=== PATIENT | female | born 1985 | race African-American/Black ===

== ENCOUNTER 2024-12-14 10:52 | Outpatient (CLI) | payer OTHER, SELFPAY ==
[2024-12-14 12:11] LABS: Hematocrit 36.5 % (37.0-47.0); Hemoglobin 11.5 g/dL (12.0-15.0); Mean Corpuscular HGB Conc 31.5 g/dl (32-36); Mean Corpuscular Hemoglobin 28.3 pg (26-34); Mean Corpuscular Volume 89.9 fl (80-100); Mean Platelet Volume 8.7 fl (7.4-10.4); Platelet Count Result 317 k/mm3 (150-375); Red Blood Count 4.06 M/mm3 (4.2-5.4); Red Cell Distribution Width 13.9 % (11.5-14.5)
--- OUTSIDE RECORDS SUMMARY | 2024-12-14 12:37 | XMS_ITS | CONTINUITY OF CARE DOCUMENT ---
Author Name pernell gimenez Address Unknown Organization [facility] Address [address] [place] [address] Phone [phone] Care Team Providers Care Wharf Worker Name Role Phone Juan F Nugent MD Unavailable [phone] Juan F Nugent MD Unavailable [phone] INSURANCE PROVIDERS Payer name Policy type / Coverage type [place] red libertarian ID SELF PAY [employer] MEDICAID Medicaid [id number]
--- OUTSIDE RECORDS SUMMARY | 2024-12-14 12:37 | XMS_ITS | Clinical Summary ---
Author Organization [facility] Address [address] [place] [address] Care Team Providers Care Critical Care Cns Name Role Phone [facility] Care Provider Maya Klein MD Unavailable [phone] Source Comments [facility],non-owned Affiliates and Associated Physician Practices is amultiple site organization consisting of ambulatory clinics and hospital sitesin [place], [place], [place] and [place]. This disclosure is being madepursuant to the Care Everywhere program and may not contain all information available regarding this patient. Last updated 18.[facility] Allergies Active Allergy Reactions Criticality Noted Date Comments Oxycodone-Acetaminophen Urticaria 05/28/2012 Medications * Be aware that medications may not be up to date on this document. Alwaysverify current medications with the patient. Medication Sig Dispensed Refills Start Date End Date Status trimethoprim-sulfame thoxazole (BACTRIM DS) 800-160 MG tablet Take 2 Tabs by mouth 2 times daily. 28 Tab 0 05/28/2012 Active hydrocodone-acetamin ophen (VICODIN) 5-500 MG tablet Take 1-2 Tabs by mouth 4 times daily as needed for Pain. 20 Tab 0 05/28/2012 Active methylPREDNISolone (MEDROL DOSEPAK) 4 MG tablet Take by mouth as directed. 21 Packet 0 04/08/2013 Active albuterol HFA (PROVENTIL;VENTOLIN; PROAIR) 108 (90 BASE) MCG/ACT inhaler Inhale 2 Puffs by mouth every 4 hours as needed for Shortness of Breath or Wheezing. 1 Inhaler 1 04/08/2013 Active doxycycline (VIBRAMYCIN) 100 MG capsule Take 1 Cap by mouth 2 times daily. 14 Cap 0 04/08/2013 Active ibuprofen (MOTRIN) 600 MG tablet Take 1 Tab by mouth every 8 hours as needed for Pain. 20 Tab 0 04/08/2013 Active hydrocodone-acetamin ophen (NORCO) 5-325 MG tablet Take 1-2 Tabs by mouth every 6 hours as needed for Pain. 10 Tab 0 04/08/2013 Active azithromycin (ZITHROMAX) 250 MG tablet Take 2 tablets(500 mg) by mouth today, then one tablet(250 mg) by mouth for the next four days 6 Tab 0 12/25/2014 Active ibuprofen (MOTRIN) 800 MG tablet Take 1 Tab by mouth 3 times daily as needed for Pain. 20 Tab 0 12/25/2014 Active Social History Tobacco Use Types Packs/Day Years Used Date Smoking Tobacco: Former Alcohol Use Standard Drinks/Week Comments No 0 (1 standard drink = 0.6 oz pur e alcohol) Sex and Gender Information Value Date Recorded Sex Assigned at Not on file Gender Identity Not on file Sexual Orientation Not on file Last Filed Vital Signs Vital Sign Reading Time Taken Comments Blood Pressure 133/96 12/25/2014 11:44 AM CDT Pulse 66 12/25/2014 11:44 AM CDT Temperature 37.1 C (98.7 F) 12/25/2014 10:22 AM CDT Respiratory Rate 18 12/25/2014 10:22 AM CDT Oxygen Saturation 100% 12/25/2014 11:44 AM CDT Inhaled Oxygen Concentration - - Weight 62.1 kg (137 lb) 12/25/2014 10:22 AM CDT Height 154.9 cm (5' 0.98 ) 12/25/2014 10:22 AM C DT Body Mass Index 25.9 12/25/2014 10:22 AM CDT Plan of Treatment Health Maintenance Due Date Last Done Comments LIPID TESTING 1984 MAMMOGRAM 1984 PAP SMEAR 1984 HIV SCREENING 1999 HEPATITIS C SCREENING 10/27/2002 DTAP/TDAP/TD VACCINES (1 - Tdap) 2003 HEPATITIS B VACCINE (1 of 3 - 19+ 3-dose series) 2003 COVID-19 VACCINE (2023-2 5 season) 2024 DEPRESSION SCREENING 09/14/2024 INFLUENZA VACCINE (Season Ended) 2025 ZOSTER VACCINE (1 of 2) 2034 HIB VACCINE Aged Out No longer eligi ble based on patient's age to complete this topic HPV VACCINE Aged Out No longer eligi ble based on patient's age to complete this topic MENINGOCOCCAL (Group B) VACC INE SHARED DECISION-MAKING Aged Out No longer eligibl e based on patient's age to complete this topic MENINGOCOCCAL GROUPS A/C/Y/W VACCINE Aged Out No longer eligible b ased on patient's age to complete this topic PNEUMOCOCCAL VACCINE Aged Out No long er eligible based on patient's age to complete this topic Care Teams Critical Care Cns Relationship Specialty Start Date End Date [facility], [facility] [address] [place] [address] PCP - General 06/01/18 Maya Klein MD [address] [place] [address] Family Medicine 06/01/18
--- OUTSIDE RECORDS SUMMARY | 2024-12-14 12:37 | XMS_ITS | Data Portability ---
Author Organization [place] [facility] [employer] [facility] Address [address] [place] [address] Assessment Encounter Date Assessment Date Assessment LastModified by Organization Details LastModified Time 11/03/2024 11/03/2024 DD: Viral URI vs influenza A: Influenza suspected. Patient presents within 48 hours of onset of symptoms. Will prescribe Tamiflu 75 mg bid x 5 days. Diagnosis and treatment plan discussed with patient using shared decision making. Patient voices understanding and agrees with treatment plan. P: Tamiflu 75 mg twice daily for 5 days. Take over the counter cold medicines as needed for nasal congestion, cough, fever. Use saline nasal spray 2-3 times daily. Take ibuprofen 600 mg every 6 hours as needed for headache, body aches or fever. Follow up with your doctor in 5 days if not better. Go to the ER immediately if you develop fever higher than 103, severe headache, neck stiffness or any worsening symptoms [email or web address] Not available 11/03/2024 15:22:26 Plan of Treatment Reminders Order Date Submit Date Provider Last Modified By Organization Details Last Modified Time Details Appointments None recorded. Lab None recorded. Referral None recorded. Procedures None recorded. Surgeries None recorded. Imaging None recorded. Medication Orders Tamiflu 75 mg capsule 025 025 [id number], [address] [place], [place], [id number], 15:22:24 Patient TargetsNo targets recorded. Patient InstructionsNo instructions recorded. Reason for Referral None Reported. Medical Equipment None Reported. Allergies No known drug allergies Medications Name Sig Start Date Stop Date Status Note LastModified by Organization Details LastModified Time Tamiflu 75 mg capsule Take 1 capsule twice a day by oral route for 5 days. 02/20/2 025 active Not Available Not Available Not Avai lable Vitals None Recorded Social History None recorded. Functional Status None recorded. Mental Status None recorded. Family History Nothing Reported. Medical History No medical history recorded. Gynecological HistoryNo gynecological history recorded. Obstetrics History GPAL:G 0 P 0 0 0 0 Past Encounters Encounter ID Performer Location Encounter Start Date Encounter Closed Date Diagnosis/Indication Diagnosis SNOMED-CT Code Diagnosis ICD10 Code Diagnosis Note [id number] HEVER Heard [facility] [address] [place] [address] 11/03/2024 15:15:59 11/03/2024 21:23:29 Influenza-like illness 19504046 B34.9 Health Concerns Section Related Observation LastModified by Organization Detai ls LastModified Time None Recorded Concern Status LastModified by Organization Details LastModified Time None Recorded Advance Directives Directive None Recorded Payers Encounter Date Sequence Insurance Name Policy Number Policy Lopez Covered Member ID Lopez Member ID Guarantor Name 11/03/2024 1 [facility] [id number] Shamyra Felix [id number] Shamyra Felix 11/03/2024 3 *SELF PAY* [id number] Shamyra Felix [id number] Shamyra Felix Notes Date Note Type Note Provider Name and Address Organization Details Recorded Time 11/03/2024 text/html Call connected, patient greeted. Patient name, , telephone number and location verified verbally with the patient. Telemedicine limitations reviewed, answered all questions the patient had about the telehealth interaction, and verbal consent obtained to treat. Clinician attests they are physically located in the following state at the time of visit: [place] CC:influenza HPI:39 year old female patient presents today for headaches, diarrhea, cough, chest congestion, wheezing, and sinus pressure starting 1 day agoOTC/prescription medications and/or at home treatments include: mucinexPatient denies: sob HEVER Heard [address] [facility] [address] [place], [address], [place] [facility] 11/03/2024 15:24:01 OBGyn Episode No OBEpisode recorded.
== END 2024-12-14 10:53 | disposition home or self-care (01) ==
LOC: ANHSURGERY 10:59
PROVIDERS: Visit Provider Obstetrics & Gynecology
DX: N92.1 Excessive and frequent menstruation with irregular cycle (principal)
CPT/HCPCS: 36415; 85027